=== PATIENT | male | born 1960 | race Caucasian/White ===

== ENCOUNTER 2021-10-23 10:23 | Emergency (ER) | payer OTHER ==
[~2021-10-23] VITALS: Ht 172.7 cm; Wt 95.2 kg
[2021-10-23 10:51] LABS: BASOPHILS ABSOLUTE AUTO 0.01 K/mm3 (0.00-0.23); BASOPHILS PERCENT AUTO 0 % (0-2); EOSINOPHILS ABSOLUTE AUTO 0.05 K/mm3 (0.00-0.68); EOSINOPHILS PERCENT AUTO 1 % (0-6); Hematocrit 44.3 % (37.0-53.0); Hemoglobin 14.8 g/dL (13.5-17.5); IMMATURE GRAN ABSOLUTE AUTO 0.02 K/mm3 (0.00-0.10); IMMATURE GRAN PERCENT AUTO 0 % (0-1); LYMPHOCYTES ABSOLUTE AUTO 2.11 K/mm3 (0.84-5.20); LYMPHOCYTES PERCENT AUTO 29 % (21-46); MONOCYTES PERCENT AUTO 10 % (4-13); Mean Corpuscular HGB 32.6 pg (26.0-34.0); Mean Corpuscular HGB Conc 33.4 g/dL (31.5-36.5); Mean Corpuscular Volume 98 fL (80-100); NEUTROPHILS ABSOLUTE AUTO 4.28 K/mm3 (1.96-9.15); NEUTROPHILS PERCENT AUTO 60 % (41-73); Platelet Count 163 K/mm3 (150-400); RDW Coefficient Variation 12.9 % (11.7-14.2); RDW Standard Deviation 46.6 fL (35.1-46.3); Red Blood Cell Count 4.54 M/mm3 (4.30-5.90); White Blood Cell Count 7.17 K/mm3 (4.00-11.30)
[2021-10-23] MEDS ORDERED: ISOSORBIDE MONO30 MG PO (11:03)
[2021-10-23] MEDS ORDERED: RANOLAZINE ER500 M2 PO (11:03)
[2021-10-23] MEDS ORDERED: NITROGLYCERIN0.4 M3 (11:03)
[2021-10-23] MEDS ORDERED: LIPITOR80 MG PO (11:03)
[2021-10-23] MEDS ORDERED: LANSOPRAZOLE30 MG PO (11:03)
[2021-10-23] MEDS ORDERED: AMLODIPINE BESYL5 MG PO (11:04)
[2021-10-23] MEDS ORDERED: EZETIMIBE10 M6 PO (11:04)
[2021-10-23] MEDS ORDERED: Ventolin/Prove6.7 GM INH (11:05)
[2021-10-23] MEDS ORDERED: Aspir 8181 MG PO (11:05)
[2021-10-23 11:06] LABS: Alanine Aminotransfer (ALT/SGP 46 U/L (12-78); Albumin, Blood 3.7 g/dL (3.4-5.0); Albumin/Globulin Ratio 1.1 (0.8-1.8); Alk Phos 94 U/L (50-136); Anion Gap 9 mmol/L (6-16); Aspartate Aminotrans (AST/SGOT 25 U/L (12-37); Bilirubin, Total 0.7 mg/dL (0.1-1.0); Blood Urea Nitrogen 14 mg/dL (8-24); Bun/Creatinine Ratio 17.3 (12.0-20.0); CO2, Blood 24 mmol/L (21-32); Calcium, Blood 9.3 mg/dL (8.5-10.1); Chloride, Blood 111 mmol/L (98-108); Creatinine, Blood 0.81 mg/dL (0.60-1.20); Globulin, Blood 3.4 g/dL (2.2-4.0); Glomerular Filtration Rate >60 (60-); Glucose, Blood 110 mg/dL (70-99); Potassium, Blood 4.3 mmol/L (3.5-5.5); Sodium, Blood 144 mmol/L (136-145); Total Protein, Blood 7.1 g/dL (6.4-8.2)
== END 2021-10-23 14:07 | disposition home or self-care (01) ==
LOC: ER 10:23
PROVIDERS: Emergency Medicine
DX: R07.9 Chest pain, unspecified (principal); F17.210 Nicotine dependence, cigarettes, uncomplicated
CPT/HCPCS: 71045; 80053; 83690; 84484; 85025; 93005; 93010; 99285-25

== ENCOUNTER 2022-01-28 08:50 | Day surgery (SDC) | payer OTHER ==
[~2022-01-28] VITALS: Ht 172.7 cm; Wt 93.9 kg
[~2022-01-28 08:50] MED LIST: AMLODIPINE BESYL5 MG PO; Aspir 8181 MG PO; EZET10 PO; EZETIMIBE10 M6 PO; ISOSORBIDE MONO30 MG PO; Isosorbide Mono30 MG PO; LANS30EC PO; LANSOPRAZOLE30 MG PO; LIPITOR80 MG PO; NITROGLYCERIN0.4 M3 SL; RANO500T PO; RANOLAZINE ER500 M2 PO; Ventolin/Prove6.7 GM INH
--- NOTE | 2022-01-28 09:57 | NUR ---
History, Chart, Medications and Allergies reviewed before start of procedure. Patient states colon prep results clear. Patient States Post-Procedure ride home has been arranged.
--- NOTE | 2022-01-28 10:59 | NUR ---
01/28/22 1059 Rozina Sanders History, Chart, Medications and Allergies reviewed before start of procedure.MODERATE SEDATION OF VERSED AND FENTANYL FOR SLEEP APNEA
--- NOTE | 2022-01-28 11:34 | NUR ---
Discharge instructions reviewed with patient. Patient verbalizes understanding. Copy given to patient to take home.
--- NOTE | 2022-01-28 11:42 | NUR ---
Discharged via wheelchair to private car for ride home.
== END 2022-01-28 11:43 | disposition home or self-care (01) ==
LOC: ORSCMMR 08:50 → ORD 10:00 → ORSCMMR 10:00
PROVIDERS: Internal Medicine Gastroenterology
PROC: 0DBL8ZX Excision of Transverse Colon, Via Natural or Artificial Opening Endoscopic, Diagnostic (ICD-10-PCS; principal; 2022-01-28 10:00)
PROC: 0DBN8ZX Excision of Sigmoid Colon, Via Natural or Artificial Opening Endoscopic, Diagnostic (ICD-10-PCS; principal; 2022-01-28 10:00)
DX: Z12.11 Encounter for screening for malignant neoplasm of colon (principal); Z86.010 Personal history of colon polyps; D12.3 Benign neoplasm of transverse colon; D12.5 Benign neoplasm of sigmoid colon; K21.9 Gastro-esophageal reflux disease without esophagitis; J44.9 Chronic obstructive pulmonary disease, unspecified; I25.10 Atherosclerotic heart disease of native coronary artery without angina pectoris; Z79.899 Other long term (current) drug therapy; Z79.82 Long term (current) use of aspirin; Z87.891 Personal history of nicotine dependence
CPT/HCPCS: 88305; J2250; J2704; J3010; J7120